=== PATIENT | male | born 1960 | race Caucasian/White ===

== ENCOUNTER 2018-10-29 12:21 | Observation (INO) ==
--- NOTE | 2018-10-29 09:20 | Anesthesia Evaluation PreOp ---
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: Other (chronic back pain) Other Medical History: Denies Any Significant HX Anesthesia History: No Prior Anesthetic Complications, Past Anesthesia Alcohol Use: occasionally Drug use: none Medications and Allergies Gabapentin 800 mg PO QID PRN 10/29/18 [History] Ibuprofen 800 mg PO TID PRN 10/29/18 [History] OxyCODONE/APAP 5/325 [Percocet 5/325 MG] 1 tab PO TID PRN 10/29/18 [History] Allergy/AdvReac Type Severity Reaction Status Date / Time No Known Allergies Allergy Verified 10/29/18 12:36 - Meds/Allergy Pre-op Review Medications Reviewed: Yes Allergies Reviewed: Yes Beta Blockers on Current Med List: No Anesthesia Results - Labs Laboratory Tests 10/12/18 10/12/18 10/12/18 13:11 13:11 13:11 WBC 6.9 Hgb 14.3 Hct 44.0 Plt Count 307 PT 10.0 INR 0.9 APTT 30.3 Sodium 137 Potassium 4.1 BUN 12 Creatinine 0.89 - Imaging EKG: report reviewed (10/29/2018 sinus rhythm with occasional supraventricular premature complexes, LAFB) Anesthesia Exam O2 Sat Height 1.8 m Height 1.8 m Weight 114.305 kg Weight 114.305 kg O2 Sat by Pulse Oximetry 97 O2 Sat by Pulse Oximetry 97 O2 Sat by Pulse Oximetry 97 Vital Signs Temp Pulse Resp BP Pulse Ox 98.2 F 78 18 146/89 97 10/29/18 12:55 10/29/18 12:55 10/29/18 12:55 10/29/18 12:55 10/29/18 12:55 Height: 5'11'' Weight: 252 lbs NPO (# of Hours): 8 Pain Scale: 5 (back and right knee) Pain Scale Used: Numeric (1 - 10) - HEENT Pupil (Motor): EOMI Mallampati: III Teeth: Normal (multiple chipped teeth) Oral Opening: Greater than 3 - MEDICAL ATTENDANT LOC: Oriented MEDICAL ATTENDANT Motor: Normal RUE, Normal LUE, Normal RLE, Normal LLE, Normal Face MEDICAL ATTENDANT Sensory: Normal: RUE, LUE, RLE, LLE, Face - Cardiac Rhythm: Regular Murmur: None - Pulmonary Breath Sounds: bilateral Clear Respiratory Effort: Symmetrical Anesthesia Assess/Plan ASA Score: 2 Level of consciousness: Cooperative, Oriented, Tranquil Anesthetic Plan: Regional Nerve Block, Spinal Regional Nerve Block Plan: Adductor canal Monitoring Plan: Standard Monitors Recovery Plan: PACU
[~2018-10-29 12:21] MED LIST: Total Joint Mixture (50 ml) IR ONE
[2018-10-29] MEDS ORDERED: Albuterol 2.5 MG/3 ML NEBULIZER IH ONE (12:56)
[2018-10-29] MEDS ORDERED: CeFAZolin Syr 2,000MG/20 ML 2,000 MG/20 ML SYRINGE IVPB ONE (12:56)
[2018-10-29] MEDS ORDERED: Ringers Solution, Lactated 1,000 ML IVC SCH ×2 (13:00→18:17)
--- NOTE | 2018-10-29 13:35 | History & Physical Report ---
Date of Encounter: 10/29/18 Time of Encounter: 13:34 24 Hour HP Update - Instructions Instructions: If the History and Physical is less than 30 days old and was completed prior to A.M. admission and or procedure and has NOT been updated on calendar day of procedure please complete this update prior to performing procedure. - Update Patient reports changes in Medical Condition: No Changes in examination, assessment, or condition: No Changes in Medication: No Preop tests/diagnostics Reviewed: Yes Surgery Remains Indicated: Yes Consent for Planned Operative Procedure(s) Verified: Yes - Pre-Operative Checklist Preoperative Checklist Indicated: No Prophylactic Antibiotic Ordered: Yes Is VTE Prophylaxis Indicated?: Yes
[2018-10-29] MEDS ORDERED: Gabapentin 300 MG CAPSULE PO ONE (13:55)
[2018-10-29] MEDS ORDERED: Celecoxib 200 MG CAPSULE PO ONE (13:55)
[2018-10-29] MEDS ORDERED: *HR* OxyCODONE ER (12 HR) 10 MG TABLET PO ONE (13:55)
[2018-10-29] MEDS ORDERED: Ondansetron 4 MG/2 ML VIAL IVP ONE (13:56)
[2018-10-29] MEDS ORDERED: *HR* HYDROmorphone (PF) 1 MG/ML SYRINGE IVP PRN (13:56)
[2018-10-29] MEDS ORDERED: *HR* Midazolam HCl 2 MG/2 ML VIAL ONE (14:12)
[2018-10-29] MEDS ORDERED: *HR* FentaNYL (PF) 100 MCG/2 ML VIAL ONE (14:13)
[2018-10-29] MEDS ORDERED: Ropivacaine/PF 0.5% 30 ML VIAL ONE (14:13)
[2018-10-29] MEDS ORDERED: Propofol 500 MG/50 ML INFUS..BTL ONE (14:25)
[2018-10-29] MEDS ORDERED: Lidocaine -MPF 2% 2 ML VIAL ONE (14:27)
[2018-10-29] MEDS ORDERED: Ondansetron 4 MG/2 ML VIAL ONE (14:27)
[2018-10-29] MEDS ORDERED: Dexamethasone 4 MG/ML VIAL ONE ×2 (14:27→15:27)
[2018-10-29] MEDS ORDERED: Ethanol\\Acetic Acid\\Na Ace\\Ben 1,000 ML IRRIG.SOLN IR ONE (15:10)
--- NOTE | 2018-10-29 15:25 | Anesthesia Procedures ---
Date of Encounter: 10/29/18 Time of Encounter: 15:00 Procedures: Anesthesia - Epidural/Spinal Patient ID/Chart reviewed: Yes Patient examined: Yes Consent Obtained: Yes Supplemental Oxygen: Nasal Cannula Supplemental Oxygen Rate (L/min): 2 Sedation: Versed (mg): 2 Sedation: Fentanyl (mcg): 100 Site Prep: Sterile prep and drape, 0.5% Chlorhexidine/Alcohol Patient position: upright Local Anesthetic: Lidocaine 1% Amount of Local Anesthetic used: 3 Interspace Used: L3-L4 Loss of Resistance (MAYELA): No Blood: No CSF: Yes Paresthesia: No Spinal Needle Gauge: 25 Spinal Dose: 2.5cc 0.5% mpf marcaine Procedure: naa, peformed by JAY Webb Vitals + FHT's: Vital Signs/O2 Sat/Glucose, Most Recent Temp Pulse Resp BP Pulse Ox 98.2 F 67 16 102/54 98 10/29/18 14:50 10/29/18 15:14 10/29/18 15:14 10/29/18 15:14 10/29/18 15:14 - Nerve Block Procedure Date: 10/29/18 Time: 15:00 Surgical Procedure: Right TKA Robo Checklist: Correct Patient Identifier, Correct procedure, History checked Correct side: Right Blood Thinner: No Monitor Applied: EKG, BP, Pulse Oximetry Supplemental Oxygen via Nasal Cannula (L/min): 2 Sedation: Versed (mg): 0 (given and documented for Spinal) Sedation: Fentanyl (mcg): 0 (given and documented for spinal) Indication: Post Op Analgesia (per tarango) Pre-op Neuro Deficits: No Block Type: Other (adductor) Catheter placed: No Sterile Technique: Yes Ultrasound used: Yes Anatomy identified: Yes Visual spread of Local: Yes Neuro Stimulation: No Blood on Needle Aspiration: No Smooth Injection of Local: Yes Pain with Injection of Local: No Prep: Chlorhexadine Needle: 21 x 100 mm Stimuplex Local: Ropivacaine (10cc 0.5% ropivicaine with 4mg decadron) Volume (cc): 10 Number of Attempts: 1 Complications: None/effective block Vitals: Vital Signs/O2 Sat/Glucose, Most Recent Temp Pulse Resp BP Pulse Ox 98.2 F 78 16 90/65 98 10/29/18 14:50 10/29/18 15:25 10/29/18 15:25 10/29/18 15:25 10/29/18 15:25 Comments: naac, performed by Fidencio Torres, SRNA
[2018-10-29] MEDS ORDERED: *HR* Propofol 200 MG/20 ML VIAL IVP ONE (15:28)
[2018-10-29] MEDS ORDERED: Tranexamic Acid 1,000 MG/10 ML VIAL ONE (15:29)
--- NOTE | 2018-10-29 16:51 | Orthopedic Operative Note ---
Date of procedure: 10/29/18 Pre-op diagnosis: Right knee arthritis Post-op diagnosis: same Procedure: Procedure: Right robotic-assisted Total knee replacement Estimated blood loss:300 cc Hardware: Metal and polyethylene replacement. Randall Femur: 5 Tibia: 5 TS insert: 9 Patella: 39 Exam Under anesthesia: 6 degrees flexion contracture 1 degree varus as calculated by the robot full flexion and no instability Procedural Notes: Grade 4 arthritic changes lateral compartment grade 3 arthritic changes patellofemoral joint. Operative procedure: The patient was brought to the operating room and placed on the operating room table. After anesthesia was administered the operative knee was examined. Findings were noted in the exam under anesthesia. The operative extremity was prepped and draped in sterile surgical fashion. The patient received IV antibiotics prior to skin incision. A standard midline incision was made centered over the patella. The incision was made through the skin and subcutaneous tissue. A medial parapatellar tendon approach was perfor med. Care was taken to preserve tissue along the medial aspect of the patella. And to protect the patella tendon. The deep MCL was released off the medial tibia. The infra patella fat pad was excised. The patella was everted and cut was made at the level of the insertion of the quadriceps and patella tendon. The patella was sized the guide was seated and the lug holes are drilled. Knee was brought into flexion. Patient noted to have rate 4 arthritic changes lateral compartment grade 3 arthritic changes patellofemoral joint. Steinmann pins were placed in the tibia and the femur for the tibial and femoral arrays respectively. Checkpoints were also placed in the tibia and the femur for calculation purposes. The knee including the femur and the tibial registered. Osteophytes, ACL and PCL were excised at this point. Extension and flexion were assessed with a valgus stress components were adjusted on the computer to balance the knee. Femoral cuts were made first with robotic assistance, these included the anterior cut posterior cuts chamfer cuts. Tibial cut was then performed with robotic assistance as well. Bone fragments were removed, as well as the medial and lateral meniscus. The size 5 femoral guide was seated box cut was made lug holes are drilled. The size 5 tibial tray was seated and prepared with the fin cutter. Trial reduction with the 9 TS Ginger revealed extension of 0 degree and 0 degrees varus full flexion. No varus valgus instability. Trial reduction revealed excellent patella tracking. All trial components were removed all bony surfaces were irrigated. The Tibia was seated followed by the femur, The selected Ginger size was seated and secured patella. Patient had similar findings for motion and stability. The knee was closed by the PA. The knee was then irrigated out with 2 L of pulse irrigation. The extensor mechanism was closed with #2 FiberWire suture and #2 PDS suture. The subcutaneous tissue was then irrigated and closed deep with #1 PDS suture superficially with 0 PDS suture and skin was closed with zip tie The patient was then placed in a sterile dressing and a postoperative brace and transferred to recovery room in stable condition. Anesthesia: spinal Surgeon: Cruz Kern Was there an assistant golf coach present: Yes Equipment Maintenance Supervisor: Shanon Quiles Estimated blood loss (cc): 300 Condition: stable Disposition: PACU
[2018-10-29 18:00] LABS: Hemoglobin 13.2 g/dL (12.9-16.9)
--- NOTE | 2018-10-29 18:00 | Anesthesia Evaluation Post Op ---
Date of Encounter: 10/29/18 Time of Encounter: 18:00 - Vital Signs Vital Signs: Vital Signs/O2 Sat/Glucose, Most Current Temp Pulse Resp BP Pulse Ox 10/29/18 17:57 98.1 F 64 12 95/67 93 10/29/18 17:47 62 12 107/71 92 10/29/18 17:37 72 16 105/51 92 10/29/18 17:27 98.0 F 70 18 100/74 96 10/29/18 15:55 64 16 110/78 99 10/29/18 15:45 76 16 107/67 99 10/29/18 15:25 78 16 90/65 98 10/29/18 15:14 67 16 102/54 98 10/29/18 15:00 78 16 119/83 97 10/29/18 14:50 98.2 F 81 16 132/98 97 - Lungs Lungs: Clear Ascult./Percussion - Airway Airway: Non-obstructed - Cardiovascular Regular Rate - Mental Status Mental Status: Alert & Oriented, Answers Appropriately - Pain Pain Scale: 0 - Nausea Vomiting Nausea Vomiting: Not Present - Hydration Hydration: Ice chips - Discharge PostOp Status: Transfer Patient to floor
[2018-10-29] MEDS ORDERED: Sennosides 8.6 MG TABLET PO PRN (18:17)
[2018-10-29] MEDS ORDERED: Naloxone 0.4 MG/ML INJ IVP PRN (18:17)
[2018-10-29] MEDS ORDERED: Temazepam 15 MG CAPSULE PO PRN (18:17)
[2018-10-29] MEDS ORDERED: traMADol 50 MG TABLET PO PRN (18:17)
[2018-10-29] MEDS ORDERED: *HR* Promethazine 25 MG/ML VIAL IVP PRN (18:17)
[2018-10-29] MEDS ORDERED: MOM Conc 10 ML UD.LIQ PO PRN (18:17)
[2018-10-29] MEDS ORDERED: Ondansetron 4 MG/2 ML VIAL IVP PRN (18:17)
[2018-10-29] MEDS: *HR* Enoxaparin 30 MG/0.3 ML SYRINGE SQ SCH (20:34)
[2018-10-29] MEDS: Gabapentin 400 MG CAPSULE PO SCH (20:35)
[2018-10-29] MEDS: Ascorbic Acid 500 MG TABLET PO SCH (20:35)
[2018-10-29] MEDS: *HR* OxyCODONE Immed Rel 5 MG TABLET PO PRN (20:35)
[2018-10-29] MEDS: Ketorolac 15 MG/ML VIAL IVP SCH (20:40)
[2018-10-29] MEDS: HYDROcodone BIT/Homatropine 5 MG TABLET PO PRN (22:31)
[2018-10-30] MEDS: *HR* OxyCODONE Immed Rel 5 MG TABLET PO PRN ×3 (00:19→17:39)
[2018-10-30] MEDS: HYDROcodone BIT/Homatropine 5 MG TABLET PO PRN (03:52)
[2018-10-30] MEDS: Ketorolac 15 MG/ML VIAL IVP SCH ×4 (03:52→21:43)
[2018-10-30 04:33] LABS: Basophils % 0.1 %; Hematocrit 39.5 % (37.5-50.1); Immature Granulocytes % 0.6 % (0-4); Lymphocytes # 0.4 K/mcL (0.6-4.6); Lymphocytes % 3.2 %; Mean Corpuscular HGB Conc 32.9 g/dL (31.6-35.5); Mean Corpuscular Hemoglobin 30.5 pg (28.0-33.3); Mean Corpuscular Volume 92.7 fL (83.0-100.0); Mean Platelet Volume 10.2 fL (9.4-12.4); Monocytes # 0.4 K/mcL (0.0-1.3); Monocytes % 3.2 %; Neutrophils # 12.5 K/mcL (1.6-8.9); Platelet Count 306 K/mcL (140-400); Red Blood Count 4.26 M/mcL (4.19-5.50); Red Cell Distribution Width 12.7 % (11.5-14.5); Segmented Neutrophils % 92.9 %; White Blood Count 13.5 K/mcL (4.3-11.1)
[2018-10-30 04:53] LABS: BUN/Creatinine Ratio 24 (6-26); Blood Urea Nitrogen 20 mg/dL (6-20); Calcium 8.9 mg/dL (8.6-10.3); Carbon Dioxide 27 mEq/L (23-29); Chloride 102 mEq/L (98-107); Glucose 139 mg/dL (70-105); Osmolality,Calculated 291 (280-300); Potassium 4.7 mEq/L (3.5-5.1); Sodium 138 mEq/L (136-145); eGFR For African Americans > 60 (> 60); eGFR For Non-African Americans > 60 (> 60)
--- NOTE | 2018-10-30 06:27 | Orthopedics Progress Note ---
Date of Encounter: 10/30/18 Time of Encounter: 06:27 Subjective Interval history: Patient was seen this morning doing well without complaints. Afebrile vital signs stable. Operative extremity: Neurovascularly intact Dressing clean dry and intact Calves nontender Assessment and plan: Continue with postoperative care Hematocrit 39 plan for discharge today Objective Vital signs: Vital Signs Temp Pulse Pulse Resp BP Pulse Ox 10/30/18 05:37 76 10/29/18 21:15 98.7 F 82 16 124/76 95 10/29/18 20:15 98.5 F 78 76 16 126/78 95 10/29/18 19:15 98.4 F 88 16 134/82 95 10/29/18 18:45 97.9 F 72 16 115/76 93 10/29/18 18:19 98.3 F 71 14 112/77 93 10/29/18 17:57 98.1 F 64 12 95/67 93 10/29/18 17:47 62 12 107/71 92 10/29/18 17:37 72 16 105/51 92 10/29/18 17:27 98.0 F 70 18 100/74 96 10/29/18 15:55 64 16 110/78 99 10/29/18 15:45 76 16 107/67 99 10/29/18 15:25 78 16 90/65 98 10/29/18 15:14 67 16 102/54 98 10/29/18 15:00 78 16 119/83 97 10/29/18 14:50 98.2 F 81 16 132/98 97 10/29/18 13:05 98.2 F 78 18 146/89 97 10/29/18 12:55 98.2 F 78 18 146/89 97 Intake and Output 10/29/18 10/29/18 10/30/18 15:59 23:59 07:59 Intake Total 1070 / 1070 400 / 400 Output Total 300 / 300 0 / 0 Balance 770 / 770 400 / 400 Intake: IV Fluids 100 / 100 Ancef 2,000 MG In 0.9 % Sodium 100 / 100 Chloride 100 ML @ 200 mls/hr IVPB Q8H [facility] Rx#:[id number] Oral 970 / 970 400 / 400 Output: Urine 0 / 0 0 / 0 Estimated Blood Loss 300 / 300 Other: Weight 114.305 kg 115.64 kg Patient Weight 10/30/18 23:59 Weight 115.64 kg - Labs CBC & BMP: 10/30/18 04:16 10/30/18 04:16 Labs: Abnormal lab results WBC 13.5 K/mcL (4.3-11.1) H 10/30/18 04:16 Neutrophils # 12.5 K/mcL (1.6-8.9) H 10/30/18 04:16 Lymphocytes # 0.4 K/mcL (0.6-4.6) L 10/30/18 04:16 Glucose 139 mg/dL (70-105) H 10/30/18 04:16 Consult Discharge Plan - Plan Referrals: Gely Diego, EDUCATIONAL COORDINATOR [Primary Care Provider] -
[2018-10-30] MEDS: *HR* Enoxaparin 30 MG/0.3 ML SYRINGE SQ SCH ×2 (06:59→17:45)
[2018-10-30] MEDS: Ascorbic Acid 500 MG TABLET PO SCH ×2 (10:03→17:39)
[2018-10-30] MEDS: Gabapentin 400 MG CAPSULE PO SCH ×4 (10:03→21:43)
[2018-10-30] MEDS: Multivit/Ca/Min/Fe/FA 1 TAB TABLET PO SCH (10:03)
--- NOTE | 2018-10-30 11:06 | Discharge Summary ---
Orders not resulted at time of discharge: Pending orders 10/29/18 16:20 Surgical Pathology [PTH] Routine Date of Encounter: 10/31/18 Time of Encounter: 08:21 - Discharge Diagnosis (1) Arthritis of right knee Priority: Primary Status: Chronic (2) Status post total right knee replacement Priority: Primary Status: Acute (3) Tobacco dependence Priority: Secondary Status: Chronic (4) Obesity Priority: Secondary Status: Chronic Qualifiers: Obesity type: unspecified obesity type Obesity classification: unspecified obesity classification Serious obesity comorbidity presence: unspecified whether serious comorbidity present Qualified Code(s): E66.9 - Obesity, unspecified - Hospital Course Hospital course: Mr. Francis is a 58 year old male POD#2 s/p Right robotic-assisted Total knee replacement [arthritis] 10/29/18 The patient's postoperative course was uneventful. Patient expressed dissatisfaction regarding pain medication and administration. [facility] has been in frequent contact with patient's pain management office regarding postoperative medications and they were updated this day regarding patient's discharge medications. It was requested that patient be contacted by their office for closer follow up postoperatively. Progressed from intravenous analgesic needs to oral analgesic needs only. Remained neurovascularly intact and mobilized satisfactorily. All radiographic studies were satisfactory. Patient course and disposition was followed by Dr. Kern. Patient seen by Dr. Kern as discharging physician on this day. Patient is discharged to home with home health therapy as plan for rehabilitation and outpatient orthopedic follow up has been arranged. - Time Spent with Patient Total time spent providing and/or coordinating discharge services: - Discharge Medications Prescriptions: New Docusate [Colace] 100 mg PO BID 10 Days #20 capsule Aspirin Enteric Coated [Aspirin EC] 325 mg PO BID 10 Days #20 tablet.dr Acetaminophen [Non-Aspirin Extra Strength] 500 mg PO Q6H PRN 7 Days #28 tablet PRN Reason: Mild To Moderate Pain Tizanidine HCl 4 mg PO Q6H PRN 7 Days #21 tablet PRN Reason: Spasms Lidocaine Patch [Lidoderm 5% patch] 1 each TP DAILY 10 Days #10 adh..patch Continued OxyCODONE/APAP 5/325 [Percocet 5/325 MG] 1 tab PO TID PRN PRN Reason: Pain Ibuprofen 800 mg PO TID PRN PRN Reason: Pain Gabapentin 800 mg PO QID Home Medications: Gabapentin 800 mg PO QID 10/29/18 [History] Ibuprofen 800 mg PO TID PRN 10/29/18 [History] OxyCODONE/APAP 5/325 [Percocet 5/325 MG] 1 tab PO TID PRN 10/29/18 [History] Acetaminophen [Non-Aspirin Extra Strength] 500 mg PO Q6H PRN 7 Days #28 tablet 10/30/18 [Rx] Aspirin Enteric Coated [Aspirin EC] 325 mg PO BID 10 Days #20 tablet.dr 10/30/18 [Rx] Docusate [Colace] 100 mg PO BID 10 Days #20 capsule 10/30/18 [Rx] Tizanidine HCl 4 mg PO Q6H PRN 7 Days #21 tablet 10/30/18 [Rx] Lidocaine Patch [Lidoderm 5% patch] 1 each TP DAILY 10 Days #10 adh..patch 10/31/18 [Rx] Allergies/Adverse Reactions: Allergy/AdvReac Type Severity Reaction Status Date / Time No Known Allergies Allergy Verified 10/29/18 12:36 Date of admission: 10/29/18 Primary care physician: Gely Diego CNP Consults: 10/29/18 18:17 Consult to Nutrition [CONS] Routine Comment: Consulting Provider: NUTRITION Reason for Dietary Consult: Other Other:: Proper nutrition to facilitate wound healing Consult to Orthopedic Navigator [CONS] [CONS] Routine Consult to Physical Therapy [CONS] Routine Comment: Evaluate, develop and impliment POC Reason for Consult: post knee surgery Does patient have active BEDREST order?: No Is patient medically & hemodynamically stable?: Yes Consult to Filer Helper [CONS] Routine Reason for SW Consult: post op joint replacement RT Post Op Consult [CONS] Routine Discharging clinician: Cruz Kern Anticipated date of discharge: 10/31/18 - VTE Documentation of Mechanical Device: Venous foot pump, device Labs on day of discharge: Labs from last 24 hours 10/30/18 10/30/18 10/29/18 04:16 04:16 17:45 WBC 13.5 H RBC 4.26 Hgb 13.0 13.2 Hct 39.5 40.0 MCV 92.7 MCH 30.5 MCHC 32.9 RDW 12.7 Plt Count 306 MPV 10.2 Immature Gran % 0.6 Seg Neutrophils % 92.9 Lymphocytes % 3.2 Monocytes % 3.2 Eosinophils % 0.0 Basophils % 0.1 Neutrophils # 12.5 H Lymphocytes # 0.4 L Monocytes # 0.4 Eosinophils # 0.0 Basophils # 0.0 Sodium 138 Potassium 4.7 Chloride 102 Carbon Dioxide 27 BUN 20 Creatinine 0.83 Est GFR ( Amer) > 60 Est GFR (Non-Af Amer) > 60 BUN/Creatinine Ratio 24 Glucose 139 H Calculated Osmolality 291 Calcium 8.9 Blood Type Antibody Screen 10/29/18 13:16 WBC RBC Hgb Hct MCV MCH MCHC RDW Plt Count MPV Immature Gran % Seg Neutrophils % Lymphocytes % Monocytes % Eosinophils % Basophils % Neutrophils # Lymphocytes # Monocytes # Eosinophils # Basophils # Sodium Potassium Chloride Carbon Dioxide BUN Creatinine Est GFR ( Amer) Est GFR (Non-Af Amer) BUN/Creatinine Ratio Glucose Calculated Osmolality Calcium Blood Type O POSITIVE Antibody Screen NEGATIVE - Impressions ITS Impressions Knee X-Ray 10/29/18 01:00 IMPRESSION: Knee arthroplasty without evidence of complication. D/ / Elvin Ayala MD / Elvin Ayala MD Interpreting Provider: Elvin Ayala MD - Patient Status Disposition: Home Health Service Condition: Good Functional capacity at discharge: uses cane/walker Overall status at discharge: patient is progressing back to baseline - Discharge Instructions Follow Up With: Gely Diego CHILD WELFARE WORKER [Primary Care Provider] - - Diet and Activity Activity: as per physical therapy Diet: advance to your usual diet
--- NOTE | 2018-10-30 11:08 | Physician Discharge Referral ---
<Shanon Quiles E - Last Filed: 10/30/18 11:08> - Diagnosis (1) Arthritis of right knee Status: Chronic (2) Status post total right knee replacement Status: Acute (3) Tobacco dependence Status: Chronic (4) Obesity Status: Chronic - Respiratory Orders Smoking Cessation: Smoking cessation has been advised. For more information, call the [place] Tobacco Quit Line at 9-784-VOEM-NOW. - Transfer Medications Prescriptions: Aspirin Enteric Coated [Aspirin EC] 325 mg PO BID 10 Days #20 tablet.dr Mackay [Colace] 100 mg PO BID 10 Days #20 capsule Acetaminophen [Non-Aspirin Extra Strength] 500 mg PO Q6H PRN 7 Days #28 tablet PRN Reason: Mild To Moderate Pain Tizanidine HCl 4 mg PO Q6H PRN 7 Days #21 tablet PRN Reason: Spasms Home Medications: Gabapentin 800 mg PO QID 10/29/18 [History] Ibuprofen 800 mg PO TID PRN 10/29/18 [History] OxyCODONE/APAP 5/325 [Percocet 5/325 MG] 1 tab PO TID PRN 10/29/18 [History] Acetaminophen [Non-Aspirin Extra Strength] 500 mg PO Q6H PRN 7 Days #28 tablet 10/30/18 [Rx] Aspirin Enteric Coated [Aspirin EC] 325 mg PO BID 10 Days #20 tablet. 10/30/18 [Rx] Clarkeusate [Colace] 100 mg PO BID 10 Days #20 capsule 10/30/18 [Rx] Tizanidine HCl 4 mg PO Q6H PRN 7 Days #21 tablet 10/30/18 [Rx] Allergies/Adverse Reactions: Allergy/AdvReac Type Severity Reaction Status Date / Time No Known Allergies Allergy Verified 10/29/18 12:36 Certification: Further, I certify that my clinical findings support that this patient is homebound (i.e. absences from home require considerable and taxing effort and are for medical reasons or judaism services or infrequently or short duration when for other reasons) because: Attestation: My signature below is to certify that this patient is under my care and that I, or nurse practitioner, or a physician's assistant guest services manager working with me, has a [id number] encounter with this patient. <Shanon Gonzalez - Last Filed: 10/30/18 14:36> Home Health/Hosp Referral Info Transfer to: Home Health Attending Provider: Dr. Kern - Diagnosis (1) Status post total right knee replacement Priority: Primary Status: Acute (2) Arthritis of right knee Priority: Primary Status: Chronic (3) Obesity Priority: Secondary Status: Chronic (4) Tobacco dependence Priority: Secondary Status: Chronic - Respiratory Orders None Smoking Cessation: Smoking cessation has been advised. For more information, call the [place] Tobacco Quit Line at 5-097-KKFG-NOW. - Diet/Nutrition Diet/Nutrition Orders: Regular - Activity Activity Orders: Ambulate, Chair, Walker - Services Needed Following services are medically necessary services: Nursing, Home Health Aide, Physical Therapy, Occupational Therapy Home Care Orders: Opsite dressing, leave intact until first post-operative visit. If dressing becomes >50% saturated, contact office, remove dressing and place appropriate dressing in its place. Do not allow for dressing to get wet. Zipline/Gaylord in place, plan to remove at post-operative day #14-16. Total Joint Precautions x 6 weeks Apply cold therapy wrap 3-6x/day for 20 minutes at a time. Encourage ambulation throughout the day Use Incentive spirometer 10x/hour. Elevate affected extremity above heart as tolerated. Brace: Wear knee immobilizer at night x 2 weeks. Certification: Further, I certify that my clinical findings support that this patient is homebound (i.e. absences from home require considerable and taxing effort and are for medical reasons or judaism services or infrequently or short duration when for other reasons) because: Homebound Reason: Post-surgery restriction and or conditions limit ability to leave home Attestation: My signature below is to certify that this patient is under my care and that I, or nurse practitioner, or a physician assistant guest services manager working with me, has a [id number] encounter with this patient.
[2018-10-30] MEDS: Acetaminophen IV 1,000 MG/100 ML INFUS..BTL IVPB PRN ×2 (11:56→23:09)
--- NOTE | 2018-10-30 15:49 | Electrocardiograph Report ---
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
[2018-10-31] MEDS: Ketorolac 15 MG/ML VIAL IVP SCH ×2 (02:47→07:56)
[2018-10-31] MEDS: *HR* Enoxaparin 30 MG/0.3 ML SYRINGE SQ SCH (05:39)
[2018-10-31] MEDS: *HR* OxyCODONE Immed Rel 5 MG TABLET PO PRN ×2 (05:44→09:43)
[2018-10-31 06:30] LABS: Basophils % 0.2 %; Eosinophils # 0.1 K/mcL (0.0-0.6); Eosinophils % 1.1 %; Hematocrit 36.3 % (37.5-50.1); Hemoglobin 11.7 g/dL (12.9-16.9); Immature Granulocytes % 0.4 % (0-4); Lymphocytes # 1.9 K/mcL (0.6-4.6); Lymphocytes % 20.2 %; Mean Corpuscular HGB Conc 32.2 g/dL (31.6-35.5); Mean Corpuscular Hemoglobin 31.1 pg (28.0-33.3); Mean Corpuscular Volume 96.5 fL (83.0-100.0); Mean Platelet Volume 10.3 fL (9.4-12.4); Monocytes # 0.9 K/mcL (0.0-1.3); Monocytes % 9.5 %; Neutrophils # 6.5 K/mcL (1.6-8.9); Platelet Count 278 K/mcL (140-400); Red Blood Count 3.76 M/mcL (4.19-5.50); Red Cell Distribution Width 13.2 % (11.5-14.5); Segmented Neutrophils % 68.6 %; White Blood Count 9.5 K/mcL (4.3-11.1)
--- NOTE | 2018-10-31 06:45 | Orthopedics Progress Note ---
Date of Encounter: 10/31/18 Time of Encounter: 06:44 Subjective Interval history: Patient was seen this morning patient still preoccupied with his pain management control.. Afebrile vital signs stable. Operative extremity: Neurovascularly intact Dressing clean dry and intact Calves nontender Assessment and plan: Continue with postoperative care Hematocrit 36 plan for discharge today, I spoke to the patient by phone yesterda y he is just received 90 Percocet tablets, he is concerned he will have enough pain medication this was prescribed by his pain management doctor. I cannot prescribe the patient additional narcotics, I will discuss this with his pain management physician. The patient is very unhappy with his pain management. Objective Vital signs: Vital Signs Temp Pulse Resp BP Pulse Ox 10/30/18 18:23 98.0 F 77 16 113/67 95 Intake and Output 10/30/18 10/30/18 10/31/18 15:59 23:59 07:59 Intake Total 580 / 1080 100 / 1080 Output Total 450 / 1150 700 / 1150 1580 / 1580 Balance 130 / -70 -600 / -70 -1580 / -1580 Intake: IV Fluids 100 / 200 100 / 200 Ofirmev 1,000 mg/100 ml 1,000 100 / 200 100 / 200 mg In 100 ml @ 400 mls/hr IVPB Q6HR PRN Rx#:[id number] Oral 480 / 880 Output: Urine 450 / 1150 700 / 1150 1580 / 1580 Other: Meal Lunch Percent of Meal Consumed 100% # Voids 1 - Labs CBC & BMP: 10/31/18 05:32 10/30/18 04:16 Labs: Abnormal lab results WBC 13.5 K/mcL (4.3-11.1) H 10/30/18 04:16 RBC 3.76 M/mcL (4.19-5.50) L 10/31/18 05:32 Hgb 11.7 g/dL (12.9-16.9) L 10/31/18 05:32 Hct 36.3 % (37.5-50.1) L 10/31/18 05:32 Neutrophils # 12.5 K/mcL (1.6-8.9) H 10/30/18 04:16 Lymphocytes # 0.4 K/mcL (0.6-4.6) L 10/30/18 04:16 Glucose 139 mg/dL (70-105) H 10/30/18 04:16 - VTE Documentation of Mechanical Device: Venous foot pump, device Consult Discharge Plan - Plan Referrals: Gely Diego CNP [Primary Care Provider] - Prescriptions: Aspirin Enteric Coated [Aspirin EC] 325 mg PO BID 10 Days #20 tablet. Docusate [Colace] 100 mg PO BID 10 Days #20 capsule Acetaminophen [Non-Aspirin Extra Strength] 500 mg PO Q6H PRN 7 Days #28 tablet PRN Reason: Mild To Moderate Pain Tizanidine HCl 4 mg PO Q6H PRN 7 Days #21 tablet PRN Reason: Spasms
[2018-10-31 06:48] LABS: BUN/Creatinine Ratio 25 (6-26); Blood Urea Nitrogen 19 mg/dL (6-20); Calcium 8.8 mg/dL (8.6-10.3); Carbon Dioxide 31 mEq/L (23-29); Chloride 105 mEq/L (98-107); Glucose 98 mg/dL (70-105); Osmolality,Calculated 296 (280-300); Potassium 4.5 mEq/L (3.5-5.1); Sodium 142 mEq/L (136-145); eGFR For African Americans > 60 (> 60); eGFR For Non-African Americans > 60 (> 60)
[2018-10-31 07:22] VITALS: BP 118/73
[2018-10-31] MEDS: Multivit/Ca/Min/Fe/FA 1 TAB TABLET PO SCH (07:55)
[2018-10-31] MEDS: Ascorbic Acid 500 MG TABLET PO SCH (07:55)
[2018-10-31] MEDS: Gabapentin 400 MG CAPSULE PO SCH (07:55)
--- NOTE | 2018-10-31 08:21 | Event Note ---
Date of Encounter: 10/30/18 Time of Encounter: 12:00 POD#1 s/p Right robotic-assisted Total knee replacement [arthritis] 10/29/18 Patient seen at bedside. Patient is very upset regarding pain medication. He states that he has 'been in pain since before surgery". I reminded patient he just had joint replacement surgery and our goal is not to make him pain free at present, but rather to make the pain manageable to the point he is able to participate in therapy and work toward safe discharge. He gets pain medication from Dr. Love at [facility] with pain management. Patient is aware he has a pain contract with Dr. Love. Patient begins to argue that Dr. Love doesn't give him "enough" medication "as it is to control my back pain". Patient then relates that he has a remote history of fractures in his back afterwhich "they gave me Oxy 30's and I did fine, some people get addicted and have problems, but I didn't. I still went to work and could drive while taking those. I have real problems and no one wants to give me anything for it. 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 Patient then states "I knew this was going to happen, you won't give me anything for my pain. Everyone always does this about the pain medication." I calmly outlined the facts regarding patient's current situation that he has a pain contract with a [facility] physician and if we were to prescribe Opioid based pain medication he may be at risk of violating his contract and subsequently discharged from his current pain management practice. I reminded patient of the information provided ahead of surgery from [facility] regarding Dr. Kern's ability for discretion regarding discharge and postoperative pain medication prescribing. Patient then informed we will reach out to Dr. Love's office again to clarify postoperative medications regarding his prescription that was just filled on 10/27/18 for #90/30 days of Oxycodone 5-325mg. A&Ox3 Dressing and incision c/d/i No calf tenderness, erythema, or warmth. Neurovascularly intact b/l LE. Labwork, vitals, and medications reviewed. Pain control: Inadequate per patient Participating in therapy. All questions and concerns addressed. Educated on use of incentive spirometer, ambulation, and hydration. Patient educated on post-operative restrictions and care. Addressed: see above. Patient course and disposition discussed with Dr. Kern. Dr. Kern states desire to speak with Dr. Love himself regarding pain medication. D/C plan: Home with home health today, however, patient expressing desire to stay for continued pain medication administration/control. Dr. Kern notified.
== END 2018-10-31 11:30 | disposition home health service (06) ==
LOC: 3NENU 12:21 → SAMDAY 12:21 → 3NENU 18:19
PROVIDERS: ADMIT Orthopaedic Surgery; ATTEND Orthopaedic Surgery